=== PATIENT | male | born 1955 | race Caucasian/White ===

== ENCOUNTER 2018-11-21 20:13 | Inpatient (IN) | payer OTHER ==
[~2018-11-21] VITALS: Ht 172.7 cm; Wt 99.8 kg
[2018-11-21] MEDS ORDERED: INVEGA6 MG PO (20:20)
[2018-11-21] MEDS ORDERED: LANTUS SOL100 UNIT/1 SC (20:20)
[2018-11-21] MEDS ORDERED: LIPITOR20 MG PO (20:21)
[2018-11-21] MEDS ORDERED: LISINOPRIL40 MG PO (20:22)
[2018-11-21] MEDS ORDERED: MELATONIN3 MG PO (20:23)
[2018-11-21] MEDS ORDERED: NORVASC5 MG PO (20:24)
[2018-11-21] MEDS ORDERED: SEROQUEL400 M1 PO (20:25)
[2018-11-21] MEDS ORDERED: Synthroid,Levo50 MCG PO (20:26)
[2018-11-21] MEDS ORDERED: COGENTIN0.5 MG PO (20:27)
[2018-11-21] MEDS ORDERED: ARICEPT10 M1 PO (20:28)
[2018-11-21] MEDS ORDERED: CELEXA20 MG PO (20:28)
[2018-11-21] MEDS ORDERED: PEPCID20 MG PO (20:29)
[2018-11-21] MEDS ORDERED: HUMALOG100 UNIT/1 SC ×2 (20:32→20:36)
[2018-11-21] MEDS ORDERED: MOBIC7.5 MG PO (20:32)
[2018-11-21] MEDS ORDERED: MINIPRESS1 MG PO (20:34)
[2018-11-21] MEDS ORDERED: SEROQUEL200 MG PO (20:36)
[2018-11-21] MEDS ORDERED: NOVOLOG100 UNIT/1 SC (20:40)
[2018-11-21] MEDS ORDERED: HYDROXYZINE HCL25 MG PO (20:44)
--- NOTE | 2018-11-22 00:20 | NUR ---
PER SECURITY AND AMBULANCE PERSONEL CLIENT BECAME AGGRESSIVE/AGGITATED AND TRYING TO GET OFF GUARNEY. UPON ARRIVAL TO UNIT HE JUMPED OFF CART SCREAMING IN PRESSURED SPEECH HE WAS GOING TO PEE. URINAL GIVEN. AFTER VOIDING HE WAS SWINGING URINAL AROUND. JUSTINE FROM SECURITY ABLE TO GET URINAL FROM HIM. NOREEN CHOWDHURY WENT TO GET INJECTION
--- NOTE | 2018-11-22 00:40 | NUR ---
A 63, admitted to , under the services of RASHMI Mccracken MD with a diagnosis of INTERMITTENT EXPLOSIVE DISORDER. Chief complaint is "I GOTTA PISS". Patient arrived via stretcher from AMBULANCE SERVICE Vital signs taken and recorded. RASHMI MCCRACKEN MD notified of admission to the unit. Orders received. See assessment for past medical history, medications and allergies. Clothing/patient valuable form completed. PT SIGNED VOLUNTARY ADMISSION FORM AT THE [facility] & IT WAS FAXED TO THE UNIT. ORIGINAL COPY RECEIVED PRIOR TO PT COMING ON THE UNIT. PT HIGHLY AGITATED UPON ARRIVAL. YELLING, SPEECH VERY PRESSURED, PER AMBULANCE SERVICE PT STARTED BECOMING VERY AGITATED & AGGRESSIVE & SWINGING OUT AT STAFF WHEN THEY CAME THROUGH ED FOR TRANSPORT. PT JUMPED OFF OF STRETCHER & WAS YELLING "I GOTTA PISS". WENT INTO CONFERENCE ROOM & BEGAN PEEING IN URINAL & SWINGING URINAL AROUND. PT DID SIT ON COUCH & STATED "MY GIRLFRIEND JUST . I'M NOT TALKING TO NO BODY RIGHT NOW. JUST LEAVE ME ALONE". PT DID ALLOW RN TO ADMINISTER IM GEODON 10 MG @ 0030. ASSISTED VIA WHEELCHAIR TO HIS ROOM & ASSISTED TO BED. PT REFUSED TO ANSWER ANY QUESTIONS OR SIGN ANY ADMISSION FORMS UPON ADMISSION. REFUSED SKIN ASSESSMENT. NOREEN AL
[2018-11-22 01:11] VITALS: BP 172/82
--- NOTE | 2018-11-22 01:15 | NUR ---
DR DIAS NOTIFIED OF CONSULT FOR MEDICAL MANAGEMENT & MED REQ READY FOR REVIEW.
--- NOTE | 2018-11-22 01:16 | NUR ---
DR SAUCEDA ON UNIT TO SEE PT FOR MEDICAL CONSULT
[2018-11-22 01:40] LABS: BILIRUBIN NEGATIVE (NEGATIVE); BLOOD NEGATIVE (NEGATIVE); CLARITY CLEAR (CLEAR); COLOR YELLOW (YELLOW); GLUCOSE 3+ (NEGATIVE); KETONE NEGATIVE (NEGATIVE); LEUKO ESTERASE NEGATIVE (NEGATIVE); NITRITE NEGATIVE (NEGATIVE); SPECIFIC GRAVITY <= 1.005 (1.005-1.030); UROBILINOGEN 0.2 E.U./dl (0.2-1.0)
[2018-11-22 01:55] VITALS: BP 172/82
[2018-11-22 02:04] LABS: RBC 0-2 rbc/hpf (0-2)
--- NOTE | 2018-11-22 05:56 | NUR ---
PT SLEPT FOR 1 HOUR AFTER RECEIVING JUAN SHOT. HE HAS FREQUENTLY USED BEDSIDE CALL [facility] FOR NUMEROUS REQUESTS. HE HAS BEEN VERY SARCASTIC WITH SEVERAL DEMANDS & WHEN REDIRECTED GETS VERY BELIGERANT & CURSING WITH INTIMIDATING & VERBAL THREATS AT STAFF. "GET THAT SECURITY GUARDS ASS UP HERE. HE LIED TO ME. GET HIM NOW. I WILL SET HIS ASS STRAIGHT. WHO DO YOU THINK YOU ARE? GET ME WHAT I WANT & GET IT NOW." HE IS DISRUPTIVE ON THE UNIT & YELLING IN THE HALLWAY DESPITE DIRECTIVES THAT OTHER PATIENTS ARE SLEEPING. SPEECH IS PRESSURED, TANGENTIAL & CIRCUMSTANTIAL. DISPLAYS MANIPULATIVE BEHAVIOR. WILL ASK FOR SOMETHING HE WANTS & WHEN ASSISTED & NEEDS ARE MET HE WILL START CURSING AT STAFF WITH NEGATIVE BEHAVIORS REPEATED. HE HAS USED BEDSIDE URINAL STATING THAT HE CANT WALK BUT HE HAS BEEN NOTED TO AMBULATE INDEPENDENTLY IN HIS ROOM & THE HALLWAY. HAS BEEN CONTINENT OF URINE & WAS CONTINENT OF BOWEL MOVEMENT IN HIS TOILET. ATTEMPTED TO PUSH EMERGENCY STAFF ASSIST BUTTON ON THE WALL. REQUIRES LIMIT SETTING & FIRM DIRECTIVES.
--- NOTE | 2018-11-22 07:00 | NUR ---
REFUSED AM BEDSIDE GLUCOSE
--- NOTE | 2018-11-22 07:12 | NUR ---
P: PHYSICAL AGGRESSION- PUNCHING THE GLASS AT NURSES STATION, CURSING AT STAFF; UNABLE TO REDIRECT. SECURITY CALLED TO UNIT ESCORTED PATIENT TO QUIENT ROOM. PATIENT CONTINUED TO RAISE VOICE AND YELL AT STAFF, DISRUPTIVE TO UNIT. INFORMED NURSE "YOU THINK YOU RUN THIS PLACE, I DO" I: REDIRECTION AND ASSISTED TO QUIET ROOM WITH LOW STIMULI/CHANGE OF ENVIRONMENT. R: INEFFECTIVE; PRN GEODON 10MG IM GIVEN IN RIGHT DELTOID P: CONTINUE TO MONITOR OUTBURST AND AGGRESSION; PROVIDE ONE ON ONE, REDIRECT, LIMIT SETTING AND SPACE NEEDED.
[2018-11-22 07:35] LABS: BASO % 0.4 % (0.0-1.0); EOS # 0.2 10*3/uL (0.0-0.4); HEMATOCRIT 39.4 % (42.0-52.0); HEMOGLOBIN 13.3 g/dl (14.0-18.0); LYMPH # 4.9 10*3/uL (1.3-4.4); LYMPH % 44.8 % (27.0-41.0); MEAN CELL VOLUME 95.6 fl (80.0-94.0); MEAN CORPUSCULAR HGB 32.3 pg (27.0-31.0); MEAN CORPUSCULAR HGB CONC 33.8 g/dl (33.0-37.0); MEAN PLATELET VOLUME 11.3 fl (9.6-12.3); MONO % 9.4 % (3.0-9.0); NEUT # 4.6 10*3/uL (2.3-7.9); NEUT % 42.8 % (47.0-73.0); PLATELET COUNT AUTOMATED 205 10*3/uL (130-400); RED BLOOD COUNT 4.12 10*6/uL (4.50-5.90); RED CELL DISTRI WIDTH 14.3 % (0-14.5); WHITE BLOOD COUNT 10.8 10*3/uL (4.8-10.8)
[2018-11-22 07:52] LABS: ALBUMIN 3.6 gm/dl (3.1-4.5); ALKALINE PHOSPHATASE 60 U/L (45-117); BUN 13 mg/dl (7-24); CHLORIDE 98 mmol/L (98-107); CHOLESTEROL 131 mg/dL (<200); CREATININE 0.73 mg/dL (0.70-1.30); HDL CHOLESTEROL 45 mg/dl (40-60); LDL CHOLESTEROL 47 mg/dL (9-159); POTASSIUM 4.2 mmol/L (3.5-5.1); SGOT/AST 13 IU/L (3-35); SGPT/ALT 21 U/L (12-78); SODIUM 131 mmol/L (136-145); TOTAL PROTEIN 7.3 gm/dL (6.4-8.2); TRIGLYCERIDES 193 mg/dl (<150); VLDL CHOLESTEROL 39 mg/dL (6-40)
[2018-11-22 08:00] VITALS: BP 129/65
--- NOTE | 2018-11-22 08:15 | NUR ---
PATIENT LAYING DOWN IN BED, CAN BE ARGUEMENTATIVE WITH STAFF. PATIENT IN A MORE CALM DEMEANOR. ANNN JUAN EFFECTIVE.
[2018-11-22 09:02] LABS: VITAMIN D, 25-HYDROXY 14.1 ng/mL (30-100)
--- NOTE | 2018-11-22 09:48 | NUR ---
INVEGA SUSTENNA 234MG IM GIVEN IN RIGHT DELTOID, TOLERATED WELL.
--- NOTE | 2018-11-22 11:00 | NUR ---
Spoke with Kimberly Vera for [facility]. Pt. is Detention Care at [facility] and Bed Hold. Pt. will return to facility at Discharge.
--- NOTE | 2018-11-22 11:14 | NUR ---
DR. ARANA ON UNIT TO ASSESS PATIENT.
--- NOTE | 2018-11-22 11:52 | NUR ---
AM GROUP PT ATTENDED MORNING GROUP THERAPY AND PARTICIPATED BY COLORING. PT WAS ON TASK AND EXHIBITED NO AGITATION OR AGGRESSION WHILE IN GROUP
--- NOTE | 2018-11-22 13:55 | NUR ---
PATIENT IS ALERT AND ORIENTED TO PERSON, PLACE, TIME AND SITUATION; ABLE TO VOICE NEEDS AND CAN BE DEMENDING AT TIMES. DENIES ANY HALLUCINATIONS, DELUSIONS, HI/SI OR PAIN. MOOD IS LABILE. INDEPENDENT WITH ACTIVITIES OF DAILY LIVING WITH CUEING. CONTINENT OF BOWEL AND BLADDER, SET UP FOR MEALS, INTAKES ARE GOOD WITH ADEQUATE FLUIDS. PATIENT HAS AN UNSTEADY GAIT, WALKS WITH A LIMP AND UTILIZES THE HAND RAILING. PATIENT CALMMED DOWN FROM THIS MORNING. ONE ON ONE AND REDIRECTION PROVIDED NEEDED. PATIENT INTERACTIVE IN GROUP SESSIONS. LIKES TO COLOR IN DAY ROOM. WHEN PATIENT RAISES VOICE AND START CURSING; REDIRECTION EFFECTIVE. MEDICATION COMPLAINT WITH EDUCATION. Q 15 MINUTE SAFETY CHECKS MAINTAINED. CONTINUE TO MONITOR MOOD/AGGRESSION AND PROVIDE ONE ON ONE, REDIRECTION, SPACE AND LIMIT SETTING NEEDED.
--- NOTE | 2018-11-22 14:40 | NUR ---
Occupational Therapy evaluation completed on 3 with full eval to follow. Patient admitted with schizoaffective disorder with aggressive behaviors and delusions and maricarmen. Patient speaks with pressured, hurried speech. He has impaired insight, judgement and reasoning skills but was cooperative for the evaluation. Nursing expressed concern about patient using a walker and possibly throwing walker. Patient did seem to understand walker "rules" when explained that he needed to keep all 4 feet of walker on the floor and he needed to walk at a slower pace. After PT issued the walker, OTR explained to patient and staff. ALL educated voiced their understanding. PT/OT recommend supervised walker use for max safety. Patient is low complexity level 32099. HE is able to perform self care with supervision/RI level. He becomes irritated when questioned about specifics. At this time no further OT indicated. Recommend d/c OT and patient return to LTC with supervision and assist as needed based on his cognition and behaviors. Thank you. Delfina Conrad OTR/Maddie
--- NOTE | 2018-11-22 14:46 | NUR ---
PHYSICAL THERAPY Physical therapy evaluation completed, 3N. Full details and evaluation to follow. Low complexity determined after evaluation and chart review, [id number]. Recommending supervision with ambulation using the FWW. Patient would not benefit from PT services and orders will be cancelled. Recommending returning to senior living care at discharge. Thank you. Laura Johnson, PT, DPT
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
--- NOTE | 2018-11-22 15:18 | NUR ---
Discharge plan is for pt. to return to [facility].
--- NOTE | 2018-11-22 15:35 | NUR ---
PM GROUP PT ATTENDED AFTERNOON GROUP THERAPY AND PARTICIPATED BY COLORING. PT WAS QUIET AND ON TASK AND EXHIBITED NO AGITATION OR AGGRESSION
[2018-11-22 19:30] VITALS: BP 138/68
--- NOTE | 2018-11-22 21:52 | NUR ---
Patient alert and oriented x3. Patient is calm and cooperative. Denies any hallucinations or SI/HI at this time. Patient is compliant with medications without any difficulty. Provided 1:1 for emotional support. Plan to encourage medication compliance and continue to provide 1:1 for emotional support. Plan to redirect when needed and observe for any mood or behavior changes. Q 15 minute safety checks continued and maintained. See [facility] flowsheet for further documentation.
--- NOTE | 2018-11-23 01:06 | NUR ---
24 HR chart check completed.
--- NOTE | 2018-11-23 05:42 | NUR ---
Patient slept approx. 7 hours throughout shift. Q 15 minute safety checks continued and maintained.
[2018-11-23 07:50] VITALS: BP 148/77
--- NOTE | 2018-11-23 08:00 | NUR ---
Treatment Plan meeting with Dr. Ricketts, RN, AT, SW and Staff Editor. Plan for discharge next week. Pt. will return to [facility] at discharge. Clinical Updates faxed to Facility.
--- NOTE | 2018-11-23 08:18 | NUR ---
Patient resting quietly with no c/o discomfort. Respirations easy and regular. Vital signs stable. No overt distress. TREE VICTOR
--- NOTE | 2018-11-23 08:42 | NUR ---
FLIGHT OF IDEAS. HYPERVERBAL. IN QUIET ROOM COLORING, LAUGHING TO SELF. PT ASSESSED FOR ORIENTATION LEVEL, MOOD, AND AFFECT. ASSESSED FOR SI/HI. ASSESSED FOR HALLUCINATIONS AND DELUSIONS. ASSESSED FOR SLEEP QUALITY AND APPETITE. Q15 MIN MONITORING PER POLICY. PT ALERT, ORIENTED X4. MOOD IS STABLE, AFFECT IS ANIMATED. PT TALKING, LAUGHING, SPEECH IS RAPID. CONTENT BEGINS RELEVANT TO TOPIC AND THEN PT BECOMES TANGENTIAL, FOI, PT STATES HE IS TALKING TO BATMAN. STATES "BATMAN IS COOL. [id number]-NA. BAM! OTHER PEOPLE TRY TO BE BATMAN, BUT THERE IS ONLY ONE BATMAN". PT STATES HE DOES NOT SEE BATMAN, BUT HE JUST LIKES TO TALK TO HIM. PT CONTINUES TO BE OBSERVED LAUGHING AND SPEAKING TO SELF. PT STATES HE IS SLEEPING WELL AND EATING WELL. WILL CONTINUE TO PRESENT REALITY APPROPRIATE. WILL CONTINUE TO ENCOURAGE INTERACTION WITH PEERS AND STAFF. WILL CONTINUE TO MONITOR PT'S MOOD AND AFFECT. WILL ENCOURAGE MEDICATION COMPLIANCE AND PROVIDE EDUCATION. Q 15 MIN MONITORING PER POLICY.
--- NOTE | 2018-11-23 11:56 | NUR ---
AM GROUP PT ATTENDED MORNING GROUP THERAPY AND PARTICIPATED BY COLORING. PT WAS TALKING NONSTOP AND WHEN ASKED WHO HE WAS TALKING TO STATED, "MYSELF". PT WAS CALM AND ON TASK OTHERWISE. PT EXHIBITED NO AGITATION OR AGGRESSION WHILE IN GROUP
--- NOTE | 2018-11-23 15:03 | NUR ---
Pt was pleasant this afternoon while speaking to this chief underwriter. Pt was coloring pictures. Pt's speech was less pressured and he was able to stay on topic. Pt was appropriate in conversation.
--- NOTE | 2018-11-23 15:34 | NUR ---
PM GROUP PT ATTENDED AFTERNOON GROUP THERAPY AND PARTICIPATED BY COLORING. PT DID NOT TALK TO HIMSELF MUCH AND WAS FOCUSED AND ON TASK. PT EXHIBITED NO AGITATION OR AGGRESSION WHILE IN GROUP
[2018-11-23 19:05] VITALS: BP 142/56
--- NOTE | 2018-11-23 21:04 | NUR ---
Patient alert and oriented x3. Patient is calm and cooperative. Patient having flight of ideas and is very hyperverbal. Denies any hallucinations or SI/HI at this time. Patient is compliant with medications without any difficulty. Provided 1:1 for emotional support. Plan to encourage medication compliance and continue to provide 1:1 for emotional support. Plan to redirect when needed and observe for any mood or behavior changes. Q 15 minute safety checks continued and maintained. See [facility] flowsheet for further documentation.
--- NOTE | 2018-11-23 23:21 | NUR ---
24 HR chart check completed.
--- NOTE | 2018-11-24 05:28 | NUR ---
Patient slept approx. 5 hours throughout shift. Q 15 minute safety checks continued and maintained.
[2018-11-24 07:59] VITALS: BP 143/67
--- NOTE | 2018-11-24 11:00 | NUR ---
PT IS HYPERTALKATIVE, SPEECH IS RAPID, FOI. PT REDIRECTED TO TASK AND VERBAL CONVERSATION. PT ENCOURAGED TO VERBALIZE THOUGHTS AND FEELINGS SLOWLY AND COHERENTLY. PT IS ENGAGING WITH STUDENT NURSES AT THIS TIME. PT IS LAUGHING, JOKING, AND CONTINUING WITH FOI AND RAPID SPEECH. PT IS APPROPRIATE WITH SPEECH; HOWEVER RAMBLING. WILL CONTINUE TO REDIRECT APPROPRIATE. WILL CONTINUE TO ENCOURAGE APPROPRIATE INTERACTIONS WITH STAFF AND PEERS. Q15 MIN MONITORING PER POLICY.
--- NOTE | 2018-11-24 11:46 | NUR ---
AM GROUP/MUSIC/ART PT ATTENDED AND PARTICIPATED. PT HYPERVERBAL ENTIRE GROUP TALKING WITH OVCT STUDENT. PT DID NOT WORK TOO MUCH ON COLORING ALTHOUGH IT IS WHAT PT ASKED TO DO. PT DID NOT BECOME ASSAULTIVE OR AGITATED AT THIS TIME AND WILL CONTINUE TO ATTEND AND PARTICIPATE ON GROUP TO BEST OF PT ABILITY.
--- NOTE | 2018-11-24 15:55 | NUR ---
PM/MUSIC/LEISURE SKILLS PT IN ATTENDANCE HALF WAY THROUGH GROUP. PT ATTENDED BUT DID NOT BEGIN COLORING ALTHOUGH HE ASKED FOR HIS SUPPLIIES. TOWARDS THE END OF GROUP PT BECAME AGITATED YELLING "I NEED HELP DOES ANYONE NOT PAY ATTENTION AROUND HERE?" THIS STAFF ASKED TO HELP PT WHO JUST WANTED THIS STAFF TO PUT UP HIS FOLDER WITH ARTWORK INSIDE. PT BEGIN RIPPING UP HIS ARTWORK STATING "THIS WILL GET YOU TO PAY ATTENTION TO ME" THIS STAFF EXPLAINS "I AM PAYING ATTENTION, BUT THAT IS YOUR ARTWORK YOU ARE RUINING". PT WILL CONTINUE TO BE ENCOURAGED TO ATTEND AND PARTICIPATE IN FUTURE GROUP SESSIONS ONLY IF APPROPRIATE.
--- NOTE | 2018-11-24 17:30 | NUR ---
PT YELLING OUT AT STAFF AND PEERS. CURSING. STATING "FUCK YOU. I'LL DO WHAT I WANT AND I WANT TO WATCH FOOTBALL". PT EDUCATED THAT 3 PEERS WERE WATCHING A MOVIE, PT STATES "THAT'S BULLSHIT. ALL IT IS IS SINGING AND DANCING. IT'S BULLSHIT". PT REDIRECTED. MADE AWARE OF UNIT RULES AND EXPECTATIONS, MADE PT AWARE THAT HE MUST MOVE TO ANOTHER ROOM IF HE CONTINUES TO YELL AND CURSE AT PEERS. PT STATES "OK". WILL CONTINUE TO MONITOR PT'S BEHAVIORS.
--- NOTE | 2018-11-24 18:00 | NUR ---
PT IN HALLWAY YELLING AND SCREAMING, RUNNING DOWN SHIPLEY WITH WALKER, THREATENING STAFF, SPEECH NONSENSICAL, RAMBLING, LOUD. PT CHASING MENTAL HEALTH WORKER, STATING "COME GET ME YOU LITTLE BITCH. F*CK YOU. WHY ARE YOU FLINCHING?" PT IS WAVING WALKER IN THE AIR, GESTURING. CALL PLACED TO PHARMACY TO FIND MAXIMUM DAILY DOSE OF GEODON ABLE TO BE GIVEN. PHARMACY STATES TO CALL [facility]ERRERO FOR CLARIFICATION, BUT 320MG PER DAY HAS BEEN GIVEN IN SOME CLINICAL SETTINGS.
--- NOTE | 2018-11-24 18:15 | NUR ---
CALL PLACED TO [facility], MADE AWARE OF PHARMACIST FINDINGS. STATES IT IS OK TO GIVE GEODON 10MG IM. STATES IF INEFFECTIVE, CALL BACK FOR FURTHER ORDERS. PRN GEODON ADMINISTERED TO RIGHT BUTTOCKS AT THIS TIME PER PRN ORDER.
[2018-11-24 19:44] VITALS: BP 147/71
--- NOTE | 2018-11-24 20:18 | NUR ---
Patient alert and oriented x3. Patient is very demanding,intrusive,and disruptive. Patient having flight of ideas and is very hyperverbal. Denies any hallucinations or SI/HI at this time. Patient was threatening staff by saying "If you do not make a phone call for me right now I am going to hit this glass window with my fist until it shatters". Was able to eventually redirect patient by saying if he calms down and is polite with staff and other patients then he can have a phone call. Patient calmed down and used politeness and manners. Placed phone call to patient's mother. Patient's mother consented to talking with him on phone. Within 2 minutes,patient was yelling and cursing while talking on the phone with his mother. Took phone off patient and told patient no more phone calls for today. Patient continued to curse and yell. Increased anxiety and agitation noted. Unable to redirect patient at this time. Medicated with Ativan po prn for anxiety/agitation. Will continue to monitor behaviors. Patient is compliant with medications without any difficulty. Plan to encourage medication compliance and continue to provide 1:1 for emotional support. Plan to redirect when needed and observe for any mood or behavior changes. Q 15 minute safety checks continued and maintained. See [facility] flowsheet for further documentation.
--- NOTE | 2018-11-25 00:20 | NUR ---
24 HR chart check completed.
--- NOTE | 2018-11-25 05:03 | NUR ---
Patient slept approx. 6 hours throughout shift. Q 15 minute safety checks continued and maintained.
[2018-11-25 07:58] VITALS: BP 119/70
--- NOTE | 2018-11-25 09:45 | NUR ---
DR. ARANA ON UNIT TO ASSESS PATIENT.
--- NOTE | 2018-11-25 12:15 | NUR ---
AM GROUP PT ATTENDED AND PARTICIPATED IN GROUP. PT PLEASANT BUT OFTEN ASKING FOR HELP FROM THIS STAFF. PT HYPERVERBAL AT TIMES BUT DID NOT BECOME ASSAULTIVE OR AGITATED AT THIS TIME. PT WILL CONTINUE TO ATTEND AND PARTICIPATE IN GROUP TO BEST OF ABILITY.
--- NOTE | 2018-11-25 12:49 | NUR ---
PATIENT IS ALERT TO PERSON, PLACE, TIME AND SITUATION; ABLE TO VOICE NEEDS. MEDICATION COMPLAINT WITH MEDICATION EDUCATION. DENIES ANY HALLUCINATIONS, DELUSIONS, HI/SI OR PAIN. RECIEVED INVEGA SUSTENNA 156MG IM TO RIGHT DELTOID; TOLERATED WELL. Q 15 MINUTE SAFETY CHECKS MAINTAINED. 1 PERSON ASSIST WITH VERBAL CUEING FOR ACTIVITIES OF DAILY LIVING, CONTINENT OF BOWEL AND BLADDER. SET UP FOR MEALS, INTAKES ARE GOOD WITH ADEQUATE FLUIDS. AMBULATORY WITH STEADY GAIT USING WHEELED WALKER. INTERACTIVE WITH STAFF. PARTICIPATES IN GROUPS SESSION AND COLORS QUIETLY IN QUIET ROOM. CONTINUE TO MONITOR MOOD, AGGRESSION PROVIDE ONE ON ONE, LIMIT SETTING, SPACE AND ASSIST IN QUIET ROOM FOR CHANGE OF ENVIRONMENT AND LOW STIMULI NEEDED.
--- NOTE | 2018-11-25 15:04 | NUR ---
Shift chart check completed.
[2018-11-25 20:00] VITALS: BP 133/82
--- NOTE | 2018-11-25 21:20 | NUR ---
24 HR chart check completed.
--- NOTE | 2018-11-25 22:19 | NUR ---
PT WAS SLEEPING AT THE ONSET OF THE SHIFT IN HIS ROOM. CAME TO THE DINING ROOM FOR HS SNACK. AMBULATING INDEPENDENTLY WITH ASSISTANCE OF A WALKER. ALERT & ORIENTED X 4. MOOD IS STABLE & PLEASANT. NO AGITATION OR AGGRESSIVE BEHAVIORS. REVIEWED HS MEDICATIONS & COMPLIANT TAKING THEM. HS BEDSIDE GLUCOSE 304. HAS BEEN SITTING QUIETLY IN THE DINING ROOM KEEPING TO HIMSELF COLORING & WATCHING FOOTBALL GAME. WILL CONTINUE TO MONITOR.
--- NOTE | 2018-11-26 04:37 | NUR ---
PT HAS SLEPT PAST 14
--- NOTE | 2018-11-26 06:33 | NUR ---
AM BEDSIDE GLUCOSE 212
[2018-11-26 07:55] VITALS: BP 150/75
--- NOTE | 2018-11-26 08:00 | NUR ---
Treatment Plan meeting with Dr. Ricketts, RN, AT, SW and Auto Damage Insurance Appraiser. Plan for discharge Monday or Monday. Pt. will return to [facility].
--- NOTE | 2018-11-26 08:06 | NUR ---
Patient resting quietly with no c/o discomfort. Respirations easy and regular. Vital signs stable. No overt distress. TREE VICTOR
--- NOTE | 2018-11-26 10:57 | NUR ---
Pt pleasant this AM as he spoke to this conventional underwriter about the pictures that pt has been coloring. Pt stated that he is going to sell some of the pictures to his brother. Pt sat alone, away from the group activity. Pt was smiling during interaction with this conventional underwriter.
--- NOTE | 2018-11-26 11:35 | NUR ---
AM GROUP/EXERCISE AND [place] PT WAS PRESENT FOR MORNING GROUP THERAPY BUT CHOSE NOT TO PARTICIPATE. PT SAT AT A TABLE ALONE AND COLORED. PT EXHIBITED NO AGIATION OR AGGRESSION WHILE IN THE DAYROOM
--- NOTE | 2018-11-26 13:27 | NUR ---
Left Message for [facility] Liason with [facility] to notify of plans to discharge Monday or Monday. Call placed to [facility] and Spoke with Flora gathering machine feeder. Advised that Voice Message was left for [facility] and Clinical Updates faxed to [facility]. Corporate .
--- NOTE | 2018-11-26 13:37 | NUR ---
[facility] Liason Called and was notified of plans to discharge Monday or Monday. Advised [facility] that Clinical updates were faxed to [facility].
--- NOTE | 2018-11-26 14:31 | NUR ---
PT REMAINS HYPERVERBAL WITH FLIGHT OF IDEAS. REDIRECTED. PROVIDED 1:1. ADMINISTERED MEDICATIONS PER ORDER. PT IS ALERT, ORIENTED TO PERSON, PLACE, TIME AND SITUATION. PT IS ENJOYING LOOKING OUT WINDOW AT [facility], PT STATES IT "MAKES ME FEEL GOOD". PT MEDICATION COMPLIANT WITHOUT DIFFICULTY. PT RECEPTIVE TO REDIRECTION, PT LIKES TO TALK ON PHONE WITH MOM. WILL CONTINUE TO REDIRECT APPROPRIATE. WILL CONTINUE TO PROVIDE 1:1 APPROPRIATE TO DECREASE ANXIETY. WILL CONTINUE TO ENCOURAGE MEDICATION COMPLIANCE. Q15 MIN MONITORING PER POLICY.
--- NOTE | 2018-11-26 16:37 | NUR ---
PM GROUP/LEISURE SKILLS PT ATTENDED AND PARTICPATED IN GROUP TO BEST OF ABILITY. PT REMAINED PLEASANT BUT OFTEN ASKING FOR ASSISTANCE WITH ACTIVITY FROM THIS STAFF. PT DID NOT BECOME ASSAULTIVE OR AGITATED AT THIS TIME AND IWLL CONTINUE TO ATTEND AND PARTICIPATE IN FUTURE GROUP SESSIONS.
--- NOTE | 2018-11-26 19:38 | NUR ---
24 HR chart check completed.
--- NOTE | 2018-11-26 19:48 | NUR ---
PT WALKED INTO GROUP & PER RECREATIONAL THERAPIST HE GOT AN ATTITUDE & WAS VERY DISRUPTIVE TO THE GROUP & SHE DISMISSED HIM FROM THE ROOM. PT ESCALATED IMMEDIATELY, SWINGING HIS WALKER IN THE HALLWAY AT STAFF. WALKER REMOVED. PT CURSING & YELLING AT STAFF. MEDICATED WITH ATIVAN 1 MG IM @ 1924.
[2018-11-26 19:57] VITALS: BP 140/66
--- NOTE | 2018-11-26 20:47 | NUR ---
EVENING GROUP PT UNABLE TO ATTEND DUE TO BECOMING UPSET AND AGGRESSIVE IN THE HALLWAY BEFORE GROUP. PT IN QUIET ROOM DEESCALATING AT THIS TIME. PT WILL BE ENCOURAGED TO ATTEND AND PARTICIPATE IN FUTURE GROUP SESSIONS WHEN APPROPRIATE.
--- NOTE | 2018-11-26 21:15 | NUR ---
PT ATE SNACK. COMPLIANT TAKING MEDICATIONS. ATIVAN EFFECTIVE. CONTINUES TO MAKE SARCASTIC REMARKS. ASSISTED TO HIS ROOM. HAS BEEN SLEEPING SINCE 2099.
--- NOTE | 2018-11-27 03:19 | NUR ---
PT HAS BEEN SLEEPING SINCE 2099. AWAKE AT THIS TIME. AMBULATED TO THE BATHROOM & VOIDED ALL OVER THE FLOOR. PT ASSISTED TO BED & RETURNED TO SLEEP.
--- NOTE | 2018-11-27 06:51 | NUR ---
AM BEDSIDE GLUCOSE 242
[2018-11-27 07:41] VITALS: BP 151/80
--- NOTE | 2018-11-27 08:57 | NUR ---
DR. DEXTER NOTIFIED OF PATIENT BEING DISCHARGED, TO NOTIFY DR. HERRING OF TODAY'S DISCHARGE.
[2018-11-27] MEDS ORDERED: BENZTROPINE ME0.5 MG PO (09:11)
[2018-11-27] MEDS ORDERED: RIVASTIGMINE1 EAC1 T (09:11)
[2018-11-27] MEDS ORDERED: CITALOPRAM20 MG PO (09:11)
[2018-11-27] MEDS ORDERED: DIVALPROEX SOD500 MG PO (09:11)
[2018-11-27] MEDS ORDERED: HYDROXYZINE PAM25 M1 PO (09:11)
[2018-11-27] MEDS ORDERED: ZIPRASIDONE HCL80 M1 PO (09:11)
[2018-11-27] MEDS ORDERED: INVEGA SUSTENN156 MG IM (09:11)
--- NOTE | 2018-11-27 10:28 | NUR ---
PT PLEASANT WITH MEDICATIONS THIS AM, INTERACTIVE ASKING HOW MANY HE WAS TAKING, INQUIRED ABOUT WHY HE WAS TAKING THEM, PT EDUCATION GIVEN. PT GAIT SLOW AND STEADY WITH USE OF HANDRAILS TODAY. SPOKE ON THE PHONE WITH FAMILY WITH NO S/S OF AGITATION. NO SI/HI NOTED PT HAS BEEN NOTED TO MUMBLE TO HIMSELF WHILE WALKING HALLWAYS. HE DOES WELL WITH COLORING A DISTRACTION TO CALM. HE ATE BREAKFAST WITH PEERS AND HAS INCREASED IN HIS INTERACTION WITH OTHERS. DISCHARGE PLAN IS FOR TODAY. WILL CONTINUE TO MONITOR 15 MIN CHECKS AT THIS TIME.
[2018-11-27] MEDS ORDERED: VITAMIN D5000 UNI1 PO (10:54)
--- NOTE | 2018-11-27 11:24 | NUR ---
ALL DISCHARGE INSTRUCTIONS REVIEWED WITH PATIENT, ALL INSTRUCTIONS SIGNED. PATIENT'S BELONGING GATHERED AND READY FOR DISCHARGE.
--- NOTE | 2018-11-27 11:36 | NUR ---
AM GROUP/LIGHT AND MUSIC THERAPY PT ATTENDED AND PARTICIPATED IN MORNING GROUP THERAPY. PT WAS QUIET AND ON TASK AND EXHIBITED NO AGITATION OR AGGRESSION. PT IS SET TO BE DISCHARGED FROM THE UNIT TODAY.
--- NOTE | 2018-11-27 11:42 | NUR ---
NURSE TO NURSE REPORT MORALES TO [facility].
--- NOTE | 2018-11-27 13:32 | NUR ---
UPON ASSISTING PT INTO TRANSPORTER CHAIR, FOR "PROVIDE A RIDE" STAFF OVER HEARD SLIVER CHOPPER TELL THE PT THAT "YOUR BELONGINGS ARE NOT MY RESPONSIBILITY, THEY ARE YOURS PROBLEM NOT MINE" BELONGINGS PLACED INTO THE VEHICLE WITH PT BY STAFF.
--- NOTE | 2018-11-27 15:53 | NUR ---
Patient discharged today to [facility]. Follow-up will be with Dr Ricketts, visiting psychiatrist. While at [facility], pt's behaviors improved. Pt tended to isolate away from the group activities, but was pleasant with 1:1 interaction.
== END 2018-11-27 13:28 | DRG 885 ==
LOC: 3N 20:13
PROVIDERS: ADMIT Psychiatry & Neurology Psychiatry
DX: F25.9 Schizoaffective disorder, unspecified (principal); F23 Brief psychotic disorder; I47.1 Supraventricular tachycardia; I10 Essential (primary) hypertension; E03.9 Hypothyroidism, unspecified; E78.5 Hyperlipidemia, unspecified; H90.3 Sensorineural hearing loss, bilateral; M47.9 Spondylosis, unspecified; F17.210 Nicotine dependence, cigarettes, uncomplicated; E11.9 Type 2 diabetes mellitus without complications; F32.9 Major depressive disorder, single episode, unspecified; S22.32XS Fracture of one rib, left side, sequela; Z79.4 Long term (current) use of insulin; Z79.899 Other long term (current) drug therapy